=== PATIENT | female | born 1940 | race Caucasian/White ===

== ENCOUNTER → 2017-06-29 | Outpatient (CLI) | payer OTHER, MEDICARE ==
[~2017-06-29] VITALS: Ht 142.2 cm; Wt 52.3 kg
[~2017-06-29] MED LIST: ALENDRONATE SOD70 MG PO; CENTRUM SILVER1 EAC4 PO; EXCEDRIN CAPLE1 EACH PO; MELATONIN5 M1 PO; NEURONTIN 300300 M1 PO; PLAVIX 75 MG TA75 M1 PO; SIMVASTATIN40 MG PO; TRIAMCINOLONE A80 G2 TOP
--- NOTE | ~2017-06-29 | HPC ---
[address] [address] PAIN MANAGEMENT CONSULTATION Name: MANDI VICTORIA Room #: REG SHAIDA Davis#: [id number] Admission: 06/29/17 Attend Phys: Kevin Peña MD Discharge: Date of : 36 Report #: [id number] THIS REPORT FOR: //name// CC: Nolan Peña DATE OF SERVICE: 06/29/2017 Followup visit for lumbar radiculopathy. The patient was seen 2 weeks ago. At that time, she was unable to receive an epidural steroid injection due to preauthorization requirements and her use of Plavix. The patient was originally sent to us for an epidural injection at the request of Dr. Nolan Sauceda. She is now off of her Plavix and her symptoms have not abated. She continued to have severe pain in the right leg that follow a dermatomal distribution of L5. I reviewed her x-rays with her once again today showing significant spondylosis and degenerative changes throughout. There is neural foraminal narrowing, particularly at L4-L5 causing impingement due to the stenosis and it is there that we intend to perform her injection today under fluoroscopic guidance. Potential risks and benefits were reviewed with the patient and her history of June 18 was reviewed as well. IMPRESSION: Lumbar radiculopathy, right L4-L5, L5-S1 neural foraminal stenosis. L5 radiculopathy. PROCEDURE: Lumbar epidural steroid injection. The patient was taken to fluoroscopic suite and placed prone, skin prepped with ChloraPrep. Skin anesthetized the right of midline. Skin was anesthetized at L4-L5 and a 20-gauge Tuohy epidural needle advanced at first attempt in the epidural space with loss of resistance. No blood or CSF was aspirated. 1 mm of Omnipaque was injected demonstrating good spread of dye into the right lateral recess along L4-L5. It was then followed by 3 mL of 0.5% lidocaine mixed with 80 mg triamcinolone. She tolerated the procedure well, was observed for 30 minutes and discharged. Follow up in a month. By: [id number] Kevin Peña MD /nt
[2017-06-29 10:00] VITALS: BP 151/82
== END | disposition home or self-care (01) ==
LOC: PAIN 06:53
DX: M48.061 Spinal stenosis, lumbar region without neurogenic claudication (principal); Z98.890 Other specified postprocedural states; Z79.899 Other long term (current) drug therapy

== ENCOUNTER → 2017-09-03 | Outpatient (CLI) | payer OTHER, MEDICARE ==
[~2017-09-03] VITALS: Ht 142.2 cm; Wt 51.3 kg
[~2017-09-03] MED LIST changes: +ATORVASTATIN CA40 MG PO; -SIMVASTATIN40 MG PO
--- NOTE | ~2017-09-03 | HPC ---
[facility] [address] [place] [address] PAIN MANAGEMENT CONSULTATION Name: MANDI VICTORIA Room #: REG BRIN[facility]alcom Davis#: [id number] Admission: 09/03/17 Attend Phys: Kevin Peña MD Discharge: Date of : 36 Report #: [id number] THIS REPORT FOR: //name// CC: Nolan Peña DATE OF SERVICE: 09/03/2017 Followup visit for lumbar radiculopathy and severe scoliosis. She returns to pain clinic today and would like another epidural injection. She has lumbar radiculopathy, which has responded nicely to these injections. She has had sustained relief with each injection lasting up to a couple of months. Her last injection was 06/29/2017. Pain has started to return within the last few weeks. She describes her pain as a deep ache in her right low back radiating down into the right leg all the way to the ankle. Has a creepy-crawly sensations as she describes and also some numbness and tingling in both feet. The patient has had breast cancer, recently undergone chemotherapy. 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 She has tried lidocaine patches and lying down to get rid of pain. This is generally worse after standing and worse at the end of the day. MEDICATIONS: Do include Plavix for atrial fibrillation. She discontinued it for 7 days with the blessing of her process engineering intern. She is also on alendronate, simvastatin, aspirin, gabapentin, multivitamins and melatonin. ALLERGIES: None. PQRS REVIEW: She does have some osteoarthritis involving hips and knees. She is not on an opioid medication. She has cardiac issues including a history previously of hypertension, is followed by process engineering intern. She does not smoke. She is not a fall risk. Her weight is well controlled with a normal BMI. PHYSICAL EXAMINATION: GENERAL: She is a guy 77-year-old, upbeat and positive. VITAL SIGNS: Blood pressure today is 135/82. HEART: Rate is regular. EXTREMITIES: She has noted scoliosis of the lumbar spine. She has tenderness across her low back. She has positive straight leg raising into the right leg following an L5 distribution. An MRI shows severe right foraminal stenosis at L5-S1 and L4-L5. IMPRESSION: Lumbar radiculopathy related to [place] [address] PAIN MANAGEMENT CONSULTATION Name: MANDI VICTORIA Room #: REG [facility] Ryan#: [id number] Admission: 09/03/17 Attend Phys: Kevin Peña MD Discharge: Date of : 36 Report #: [id number] degenerative changes with prominent lumbar scoliosis. RECOMMENDATIONS: Repeat epidural steroid injection under fluoroscopic guidance. PROCEDURE: She was taken to the fluoroscopic suite for treatment, placed prone, skin prepped with ChloraPrep. Skin anesthetized over the L4-L5 interspace. A 20-gauge Tuohy epidural needle advanced into the right epidural space. This was followed by 3 mL of 0.5% lidocaine mixed with 80 mg of triamcinolone. She tolerated the procedure well and was observed for 45 minutes and discharged with a followup visit scheduled for her on an as needed basis. We will not perform a series of injections. <ELECTRONICALLY SIGNED> By: Kevin Peña MD 09/30/17 1640 [id number] [id number] Kevin Peña MD /nt
[2017-09-03 12:43] VITALS: BP 149/89
== END | disposition home or self-care (01) ==
LOC: PAIN 07-30 14:20
DX: M54.16 Radiculopathy, lumbar region (principal); I48.91 Unspecified atrial fibrillation; Z79.899 Other long term (current) drug therapy; M16.0 Bilateral primary osteoarthritis of hip; M17.0 Bilateral primary osteoarthritis of knee; M41.86 Other forms of scoliosis, lumbar region

== ENCOUNTER → 2017-10-06 | Outpatient (CLI) | payer OTHER, MEDICARE ==
--- NOTE | ~2017-10-06 | 2DMMODE ---
[facility] [place] [address] 2 D/M-MODE ECHOCARDIOGRAM Name: MANDI VICTORIA Room #: REG [facility]#: [id number] Admission: 10/06/17 Attend Phys: Bruno Montoya Discharge: Date of : 36 Date of Service: 10/06/17 1447 Report #: [id number] THIS REPORT FOR: //name// APPROVED REPORT Study performed: 10/06/2017 14:06:14 EXAM: Comprehensive 2D, Doppler, and color-flow Echocardiogram Patient Location: Out-Patient Status: routine BSA: 1.36 HR: 98 bpm BP: 120/80 mmHg Rhythm: NSR Other Information Study Quality: Good Indications Dyspnea 2D Dimensions RVDd: 32.31 mm LVEF(%): 63.36 (>50%) IVSd: 10.63 (7-11mm) LVOT Diam: 21.11 (18-24mm) LVDd: 40.82 mm PWd: 9.84 (7-11mm) Ascending Ao: 31.93 (22-36mm) LVDs: 26.96 (25-40mm) Aortic Root: 33.17 mm Beach's LVEF: 63.36 % Volumes Left Atrial Volume (Systole) Single Plane 4CH: 22.20 mL Single Plane 2CH: 45.19 mL LA ESV Index: 26.00 mL/m2 Aortic Valve AoV Peak Cade.: 1.72 m/s AO Peak Gr.: 11.81 mmHg LVOT Max P.60 mmHg LVOT Max V: 1.07 m/s ANGELO Vmax: 2.18 cm2 AI Vmax: 4.40 m/s AI [place]: 3.02 m/s2 AI PHT: 422.49 ms [facility] [place] [place] [address] 2 D/M-MODE ECHOCARDIOGRAM Name: MANDI VICTORIA Room #: [facility]#: [id number] Admission: 10/06/17 Attend Phys: Bruno Montoya Discharge: Date of : 36 Date of Service: 10/06/17 1447 Report #: [id number] Mitral Valve E/A Ratio: 0.6 MV Decel. Time: 190.15 ms MV E Max Cade.: 0.55 m/s MV A Cade.: 0.98 m/s MV PHT: 55.14 ms IVRT: 93.43 ms Pulmonary Valve PV Peak Cade.: 0.67 m/s PV Peak Gr.: 1.81 mmHg Tricuspid Valve TR Peak Cade.: 3.44 m/s RAP Estimate: 10.00 mmHg TR Peak Gr.: 47.41 mmHg PA Pressure: 57.00 mmHg Left Ventricle The left ventricle is normal size. There is normal left ventricular wall thickness. Left ventricular systolic function is normal. LVEF is 50-55%. Mild diastolic dysfunction is present (impaired relaxation pattern). Right Ventricle The right ventricle is normal size. The right ventricular systolic function is low normal. Atria The left atrium size is normal. The right atrium size is normal. Aortic Valve The Aortic valve is sclerotic. Mild aortic regurgitation. There is no aortic valvular stenosis. Mitral Valve The mitral valve is normal in structure. Trace to mild mitral regurgitation. Tricuspid Valve The tricuspid valve is normal in structure. Moderate tricuspid regurgitation. Moderate pulmonary hypertension with an estimated PAP of 55-60mmHg. Pulmonic Valve The pulmonary valve is normal in structure. Mild pulmonic regurgitation. [facility] [address] [place] [address] 2 D/M-MODE ECHOCARDIOGRAM Name: MANDI VICTORIA Room #: REG Ryan#: [id number] Admission: 10/06/17 Attend Phys: Bruno Montoya Discharge: Date of : 36 Date of Service: 10/06/17 1447 Report #: [id number] Great Vessels The aortic root is normal in size. The ascending aorta is normal in size. IVC is dilated and collapses <50% with inspiration. Pericardium There is no pericardial effusion. <Conclusion> The left ventricle is normal size. LVEF is 50-55%. The Aortic valve is sclerotic. Mild aortic regurgitation. There is no aortic valvular stenosis. The mitral valve is normal in structure. Trace to mild mitral regurgitation. The tricuspid valve is normal in structure. Moderate tricuspid regurgitation. Moderate pulmonary hypertension with an estimated PAP of 55-60mmHg. The pulmonary valve is normal in structure. Mild pulmonic regurgitation. There is no pericardial effusion. <ELECTRONICALLY SIGNED> By: Ajith Mason MD 10/06/17 1447 1447 1447 Ajith Mason MD /INF
== END ==
LOC: CV 13:53
DX: I08.3 Combined rheumatic disorders of mitral, aortic and tricuspid valves (principal); I27.20 Pulmonary hypertension, unspecified